=== PATIENT | male | born 1970 | race American Indian/Alaskan Native ===

== ENCOUNTER 2017-06-21 21:51 | Inpatient (IN) | payer SELFPAY ==
--- NOTE | 2017-06-21 22:26 | Emergency Department Report ---
ED Syncope HPI - General Chief Complaint: Syncope Stated Complaint: SYNCOPAL EPISODE Time Seen by Provider: 06/21/17 22:25 Source: patient, family, EMS (ems notes not available at time of chart dictation) Exam Limitations: other (patient is a poor historian) - History of Present Illness Initial Comments: this is a 47-year-old male. He is previously unknown to me. He does not have any medical conditions that he is aware of. He is accompanied by his . Patient's reports that the patient was playing cards with friends, had 3 beers, and then became unresponsive, foaming at the mouth, and lost consciousness. She states the patient hit his head, but is not certain. The patient was initially confused and does not recall the event. As per the , no fevers, chills, nausea, vomiting, lethargy, irritability. Since for the reports there is no leg pain or leg swelling, no recent trips greater than 4 hours. No recent hospital admissions. Patient was initially confused, and then became more awake and alert with her on in the course of his stay in the ER. He denied headache, neck pain, chest pain, abdominal pain and shortness of breath. He complains of feeling generally weak. No exacerbating or relieving factors. Timing/Prior Episodes: single episode today Precipitating Factors: Positive: unknown Context: sitting Loss of Consciousness: brief (seconds) Current Symptoms: back to normal - Related Data Allergies/Adverse Reactions: Allergies No Known Allergies Allergy (Unverified 06/21/17 22:25) Home Medications: Ambulatory Orders No Known Home Medications [No Reported Home Medications] 06/21/17 ED Review of Systems ROS: Stated complaint: SYNCOPAL EPISODE Other details as noted in HPI Constitutional: malaise, weakness Eyes: denies: vision change ENT: denies: epistaxis Respiratory: denies: cough Cardiovascular: syncope Gastrointestinal: denies: abdominal pain Genitourinary: denies: dysuria Musculoskeletal: denies: as per HPI Skin: denies: lesions Neurological: weakness, confusion ED Past Medical Hx - Medications Home Medications: Home Medications Medication Instructions Recorded Confirmed Last Taken Type No Known Home Medications [No 06/21/17 06/21/17 Unknown History Reported Home Medications] ED Physical Exam - General General appearance: alert, in no apparent distress - Head Head exam: Present: atraumatic, normocephalic - Eye Eye exam: Present: normal appearance, PERRL, EOMI. Absent: nystagmus - ENT ENT exam: Present: normal exam, normal orophraynx, mucous membranes moist, normal external ear exam - Neck Neck exam: Present: normal inspection, full ROM. Absent: tenderness, meningismus - Respiratory Respiratory exam: Present: normal lung sounds bilaterally. Absent: respiratory distress, wheezes, rales, rhonchi, stridor, chest wall tenderness - Cardiovascular Cardiovascular Exam: Present: regular rate, normal rhythm, normal heart sounds. Absent: bradycardia, tachycardia, irregular rhythm, systolic murmur, diastolic murmur, rubs, gallop - GI/Abdominal GI/Abdominal exam: Present: soft, normal bowel sounds. Absent: distended, tenderness, guarding, rebound, rigid, pulsatile mass - Rectal Rectal exam: Present: deferred - Extremities Exam Extremities exam: Present: normal inspection, full ROM, normal capillary refill. Absent: tenderness, pedal edema, joint swelling, calf tenderness - Back Exam Back exam: Present: normal inspection, full ROM. Absent: tenderness, CVA tenderness (R), CVA tenderness (L), muscle spasm, paraspinal tenderness, vertebral tenderness - Neurological Exam Neurological exam: Present: alert, oriented X3, other (Extraocular movements intact. Tongue midline. No facial droop. Facial sensation intact to light touch in the V1, V2, V3 distribution bilaterally. 5 and 5 strength in 4 extremities.. Sensation is intact to light touch in 4 extremities.). Absent: motor sensory deficit - Psychiatric Psychiatric exam: Present: normal affect, normal mood - Skin Skin exam: Present: warm, dry, intact, normal color. Absent: rash ED Course Vital Signs 06/21/17 06/21/17 22:28 23:27 Temperature 98.4 F Pulse Rate 80 Respiratory 20 Rate Blood Pressure 104/71 O2 Sat by Pulse 100 100 Oximetry - Reevaluation(s) Reevaluation #1: 06/21/17 23:37 Differential diagnosis: Seizure, syncope, acute coronary syndrome, structural cardiac disease, transient ischemic attack, arrhythmia, pulmonary embolus, alcohol intoxication Assessment and plan: 47-year-old male, who is currently alert and oriented 3, with a GCS of 15, and an NIH score of 0, with single episode of loss of consciousness, foaming at the mouth, without convulsive episodes. He is clinically sober at this time, there is no midline cervical spine pain or tenderness. No pulmonary embolus or DVT risk factors, low risk by well's criteria, perc negative. EKG is morphologically abnormal with a right bundle branch block morphology, high left ventricular voltage, nonspecific ST abnormality in the V2, V3 distribution. He is not having chest pain, there are no reciprocal changes, so it is not morphologically consistent with STEMI, however it is morphologically abnormal. Laboratory studies reviewed, they are unremarkable so far. X-ray of the chest is pending, noncontrast CT scan of the brain is pending, d-dimer is pending. Given syncope versus seizure, abnormal EKG morphology, plan is to admit the patient once initial data points have returned. Reevaluation #2: 06/22/17 01:[address] scan of the brain is negative. Patient resting comfortably. Repeat EKG morphologically unchanged, still remains abnormal. Urine toxicology screen is positive for cannabis and cocaine. She is clinically sober at this time. I highly suspect that the patient's events was secondary to illicit drug consumption. Nevertheless, given his reported history, an abnormal EKG without prior for comparison, I believe it is in the patient's best interests to be admitted for echocardiogram, possible ACS risk stratification/stress test. The case was presented to the Hospital physician, Dr. Delacruz, who accepts the patient to his service. Even that this is the reported history of patient's first event of convulsive activity, he is back to baseline, I do not believe antiepileptic drug therapies indicated at this time. ED Medical Decision Making - Lab Data Result diagrams: 06/21/17 22:41 06/21/17 22:41 Vital Signs 06/21/17 06/21/17 22:28 23:27 Temperature 98.4 F Pulse Rate 80 Respiratory 20 Rate Blood Pressure 104/71 O2 Sat by Pulse 100 100 Oximetry Labs 06/21/17 06/21/17 06/21/17 22:41 22:41 22:41 WBC 6.8 RBC 4.70 Hgb 14.4 Hct 43.7 MCV 93 MCH 31 MCHC 33 RDW 13.2 Plt Count 256 Lymph % (Auto) 32.1 [facility] % (Auto) 8.2 H Eos % (Auto) 4.2 Baso % (Auto) 0.5 Lymph # 2.2 [facility] # 0.6 Eos # 0.3 Baso # 0.0 Seg Neutrophils % 55.0 Seg Neutrophils # 3.7 PT 12.7 INR 0.91 Sodium 139 Potassium 3.4 L Chloride 99.6 Carbon Dioxide 20 L Anion Gap 23 BUN 12 Creatinine 0.8 Estimated GFR > 60 BUN/Creatinine Ratio 15.00 Glucose 72 L Calcium 8.6 Magnesium 1.90 Total Bilirubin 0.30 AST 16 ALT 11 Alkaline Phosphatase 78 Total Creatine Kinase 168 Troponin T < 0.010 Total Protein 6.5 Albumin 3.9 Albumin/Globulin Ratio 1.5 TSH Plasma/Serum Alcohol 06/21/17 06/21/17 22:41 22:47 WBC RBC Hgb Hct MCV MCH MCHC RDW Plt Count Lymph % (Auto) [facility] % (Auto) Eos % (Auto) Baso % (Auto) Lymph # [facility] # Eos # Baso # Seg Neutrophils % Seg Neutrophils # PT INR Sodium Potassium Chloride Carbon Dioxide Anion Gap BUN Creatinine Estimated GFR BUN/Creatinine Ratio Glucose Calcium Magnesium Total Bilirubin AST ALT Alkaline Phosphatase Total Creatine Kinase Troponin T Total Protein Albumin Albumin/Globulin Ratio TSH 1.030 Plasma/Serum Alcohol 0.03 - EKG Data -: EKG Interpreted by [place] EKG shows normal: sinus rhythm - EKG Data When compared to previous EKG there are: previous EKG unavailable 06/21/17 23:38 Normal sinus, 80 beats per minute, QTC 447 ms, high left ventricular voltage, right bundle branch block (incomplete), not morphologically consistent with STEMI, nonspecific ST elevations in the anteroseptal leads, abnormal EKG. 06/21/17 23:41 no episilon waves noted - Radiology Data Radiology results: report reviewed, image reviewed Critical care attestation.: If time is entered above; I have spent that time in minutes in the direct care of this critically ill patient, excluding procedure time. ED Disposition Clinical Impression: Abnormal EKG, Syncope Disposition: 09 OP ADMIT IP TO THIS HOSP Is pt being admited?: Yes Does the pt Need Aspirin: Yes Condition: Good Instructions: Syncope (ED) Referrals: PRIMARY CARE, [Primary Care Provider] - 3-5 Days
[2017-06-21 23:01] LABS: Basophils % (Auto) 0.5 % (0.0-1.8); Eosinophils % (Auto) 4.2 % (0.0-4.3); Hematocrit 43.7 % (35.5-45.6); Hemoglobin 14.4 gm/dl (11.8-15.2); Mean Corpuscular HGB Conc 33 % (32-34); Mean Corpuscular Hemoglobin 31 pg (28-32); Mean Corpuscular Volume 93 fl (84-94); Platelet Count 256 K/mm3 (140-440); Red Cell Distribution Width 13.2 % (13.2-15.2); White Blood Count 6.8 K/mm3 (4.5-11.0)
[2017-06-21 23:20] LABS: Alanine Aminotransferase 11 units/L (7-56); Albumin 3.9 g/dL (3.9-5); Albumin/Globulin Ratio 1.5 %; Alkaline Phosphatase 78 units/L (35-129); Anion Gap 23 mmol/L; Blood Urea Nitrogen 12 mg/dL (9-20); Calcium 8.6 mg/dL (8.4-10.2); Carbon Dioxide 20 mmol/L (22-30); Chloride 99.6 mmol/L (98-107); Creatine Kinase 168 units/L (55-170); Glucose 72 mg/dL (75-100); INR 0.91 (0.87-1.13); Potassium 3.4 mmol/L (3.6-5.0); Sodium 139 mmol/L (137-145); Total Protein 6.5 g/dL (6.3-8.2)
[2017-06-21] MEDS ORDERED: K-DUR PO ONE (23:35)
[2017-06-21 23:56] LABS: Urine Drugs of Abuse Note Disclamer
[2017-06-22 00:06] LABS: Bacteria,Urine 1+ /HPF (Negative); Bilirubin,Urine NEG (Negative); Blood,Urine NEG (Negative); Ketones,Urine TR mg/dL (Negative); Leukocyte Esterase,Urine NEG (Negative); Mucus,Urine FEW /HPF; Nitrite,Urine NEG (Negative); Protein,Urine <15 mg/dL mg/dL (Negative); Urobilinogen,Urine < 2.0 mg/dL (<2.0); WBC,Urine < 1.0 /HPF (0.0-6.0)
[2017-06-22] MEDS ORDERED: BABY ASPIRIN PO ONE (01:04)
--- NOTE | 2017-06-22 01:06 | Cat Scan Report ---
FINAL REPORT PROCEDURE: CT HEAD/BRAIN WO CON TECHNIQUE: Computerized tomography of the head was performed without contrast material. HISTORY: ETOH. Fall. DLP P 2 284.96 mGy-cm. COMPARISON: No prior studies are available for comparison. FINDINGS: Skull and scalp: Normal. Mild degenerative changes of the cervical spine on [employer] scout image. Paranasal sinuses: Small low-attenuation polypoid lesions in the maxillary sinuses. Air-fluid level in the right sphenoid sinus. Mild ethmoid, frontal, and left sphenoid sinusitis. Ventricles and subarachnoid spaces: Normal. Cerebrum: No evidence of hemorrhage, acute infarction or mass . Cerebellum and brainstem: No evidence of hemorrhage, acute infarction or mass. Vasculature: Normal. Comments: None. IMPRESSION: No CT evidence of acute intracranial pathology. Sinusitis. Findings slightly polypoid in the maxillary sinuses, consider small retention cysts or mild polyposis.
[2017-06-22] MEDS ORDERED: AMBIEN PO PRN (01:51)
[2017-06-22] MEDS ORDERED: MORPHINE IV PRN (01:51)
[2017-06-22] MEDS ORDERED: TYLENOL PO PRN (01:51)
[2017-06-22] MEDS ORDERED: ATIVAN IV PRN ×3 (01:51)
[2017-06-22] MEDS ORDERED: HALDOL IM PRN (01:51)
[2017-06-22] MEDS ORDERED: LIBRIUM PO PRN (01:51)
[2017-06-22] MEDS ORDERED: ZOFRAN IV PRN (01:51)
--- NOTE | 2017-06-22 01:57 | History and Physical Report ---
History of Present Illness Date of examination: 06/22/17 Chief complaint: Loss of consciousness History of present illness: Patient is a 47-year-old man with history of tobacco dependency, alcohol dependency, marijuana abuse and cocaine abuse who presents with transient loss of consciousness after drinking a beer and smoking marijuana while plan cards. Witness states he is on metformin at the moment with altered mental status and confusion after. Patient denies any prodromal symptoms prior to passing out. He denies chest pain, shortness of breath, fever chills severe headaches. Patient drinks 22 ounces beer a day. Last time he smoked cocaine was 3 days ago. Past medical history: As HPI, tobacco dependency, no chronic medical condition Past surgical history: Back surgery Social history: Tobacco dependency, alcohol daily use, illegal drug use Family history: Father-diabetes, hypertension ROS: Constitutional: no weight loss, no weight gain, no chills, no sweats, no fatigue , no weakness, no poor appetite Ears, nose, mouth and throat: no deferred, no ear pain, no decreased hearing, no sinus pressure, no bleeding gums, no dental pain, no mouth pain, no hoarseness, no sore throat, no swelling in mouth, no post-nasal drip, no headache, no vertigo, no pain front of neck, no neck lump Cardiovascular: chest pain, lightheadedness, decreased exercise tolerance, no orthopnea, no palpitations, no rapid/irregular heart beat, no edema, no syncope , no shortness of breath, no dyspnea on exertion, no paroxysmal nocturnal dyspnea, no claudication, no phlebitis, no high blood pressure, no leg edema Respiratory: no cough with sputum, no excessive sputum, no hemoptysis, no pleurisy, no pain, no pain on inspiration, no respiratory infections, no other Gastrointestinal: no nausea, no diarrhea, no constipation, no hematemesis, no hematochezia, no loss of appetite, no early satiety, no indigestion, no dyspepsia/bloating Genitourinary Male: no flank pain, no discharge, no urinary hesitancy, no nocturia Rectal: no incontinence, no bleeding, no itching, no discharge Musculoskeletal: no neck stiffness, no shooting arm pain, no arm numbness/ tingling, no shooting leg pain, no leg numbness/tingling, no atrophy, no limitation of motion, no fractures, no loss of height, no prior amputations, no arthritis Integumentary: no depigmentation, no dryness, no unusual bruising Neurological: no weakness, no tingling, no syncope, no vertigo, no migraines, no aphasia, no change in mentation, no changes in smell/taste, no balance difficulties, no double vision, no burning pain, no paralysis Psychiatric: hypersomnia, change in libido, irritability, no anxiety, no memory loss, no sleep disturbances, no change in appetite, no disorientation, no hallucinations, no paranoia, no hopelessness, no anxiety attacks, no confusion Endocrine: no cold intolerance, no polyphagia, no polydipsia, no polyuria, no nocturia, no proptosis, no palpatations, no high blood sugars, no low blood sugars, no fatigue Hematologic/Lymphatic: no easy bruising, no lymphedema Allergic/Immunologic: no urticaria, no allergic rhinitis, no anaphylaxis Medications and Allergies Allergies Allergy/AdvReac Type Severity Reaction Status Date / Time No Known Allergies Allergy Verified 06/22/17 01:52 Home Medications Medication Instructions Recorded Confirmed Last Taken Type No Known Home Medications [No 06/21/17 06/21/17 Unknown History Reported Home Medications] Active Meds: Active Medications Acetaminophen (Tylenol) 650 mg PO Q6H PRN PRN Reason: Non Cardiac Pain or Temp>100.5 Chlordiazepoxide HCl (Librium) 50 mg PO Q1H PRN PRN Reason: CIWA-Ar 8-15 Folic Acid (Folvite) 1 mg PO QDAY NAVIN Haloperidol Lactate (Haldol) 5 mg IM Q1H PRN PRN Reason: Unrespon. to mult. doses BZD's Heparin Sodium (Porcine) (Heparin) 5,000 unit SUB-Q Q12HR NAVIN Dextrose/Sodium Chloride (D5/0.45ns) 1,000 mls @ 100 mls/hr IV DIRECT NAVIN Lorazepam (Ativan) 2 mg IV Q1H PRN PRN Reason: CIWA-Ar 8-15 Lorazepam (Ativan) 4 mg IV Q1H PRN PRN Reason: CIWA-Ar 16-25 Lorazepam (Ativan) 4 mg IV Q15MIN PRN PRN Reason: CIWA-Ar >25 Stop: 06/27/17 01:52 Morphine Sulfate (Morphine) 2 mg IV Q4H PRN PRN Reason: Pain , Severe (7-10) Ondansetron HCl (Zofran) 4 mg IV Q4H PRN PRN Reason: Nausea And Vomiting Pantoprazole Sodium (Protonix) 40 mg PO QDAY NAVIN Thiamine HCl (Vitamin B-1) 100 mg PO QDAY NAVIN Zolpidem Tartrate (Ambien) 5 mg PO QHS PRN PRN Reason: Sleep Exam - Physical Exam Narrative exam: GEN: WDWN, diaphoretic NAD, AWAKE, ALERT, ORIENTATED x 3 HEENT: NCAT, PERRL, EOMI, OP CLEAR NECK: SUPPLE, NO THYROMEGALY, NO JVD, NO LAD CVS: Regular tachycardic, NORMAL S1S2 LUNGS/CHEST: CTA B, NORMAL CHEST EXPANSION B, GOOD AIR ENTRY B ABD: SOFT, NTND, GBS, NO REBOUND OR GUARDING EXT/SKIN: NO SIGNIFICANT EDEMA OR RASH MSK: FROM X 4 EXTREMITIES NEURO: CN 2-12 GROSSLY INTACT, NO FOCAL DEFICITS PSY: Anxious - Constitutional Vitals: Temp Pulse Resp BP Pulse Ox 98.4 F 80 20 104/71 100 06/21/17 22:28 06/21/17 22:28 06/21/17 23:27 06/21/17 22:28 06/21/17 23:27 Results - Labs CBC & Chem 7: 06/21/17 22:41 06/21/17 22:41 Labs: Abnormal lab results 06/21/17 06/21/17 Range/Units 22:41 22:41 [place] % (Auto) 8.2 H (0.0-7.3) % Potassium 3.4 L (3.6-5.0) mmol/L Carbon Dioxide 20 L (22-30) mmol/L Glucose 72 L (75-100) mg/dL Assessment and Plan Patient is a 47-year-old man with history of tobacco dependency, alcohol dependency, marijuana abuse and cocaine abuse who presents with transient loss of consciousness after drinking a beer and smoking marijuana while plan cards. Witness states he is on metformin at the moment with altered mental status and confusion after. Patient denies any prodromal symptoms prior to passing out. He denies chest pain, palpitations, shortness of breath, fever chills severe headaches. Patient drinks 22 ounces beer a day. Last time he smoked cocaine was 3 days ago. -Syncopal episode, most likely vasovagal versus syncopal seizure: Admitted to the hospital -Altered mental status with acute toxic metabolic encephalopathy due to drug use versus syncopal seizure from alcohol withdrawal: Monitor telemetry for arrhythmia -Abnormal EKG most likely related to cocaine/etoh use: Counseling done, Get echocardiogram, serial cardiac enzymes -Tobacco dependency: Counseling stopping -Alcohol dependency: Ordered thiamine, folate and Ciwa protocol -HypoKalemia: replace and monitor -cocaine abuse: Counseling stopping -DVT prophylaxis: Subcutaneous heparin full code Disposition: inpatient care
[2017-06-22] MEDS ORDERED: D5/0.45NS 1,000 ML IV SCH (02:00)
[2017-06-22 07:05] LABS: Creatine Kinase MB 2.3 ng/mL (0.0-4.0)
[2017-06-22 07:08] LABS: Creatine Kinase 141 units/L (55-170)
[2017-06-22] MEDS: VITAMIN B-1 PO SCH (09:22)
[2017-06-22] MEDS: FOLVITE PO SCH (09:22)
[2017-06-22] MEDS: PROTONIX PO SCH (09:22)
--- NOTE | 2017-06-22 10:44 | Event Note ---
Date: 06/22/17 Patient was seen and evaluated this morning. Chart reviewed, labs reviewed. Patient didn't have any syncope overnight. No chest pain or other symptoms. We going to do echo.
[2017-06-23] MEDS: HEPARIN SUB-Q SCH ×2 (02:04→09:31)
--- NOTE | 2017-06-23 06:08 | Admit Criteria Form ---
Admission Criteria Documentation: SYNCOPE Clinical Indications for Admission to Inpatient Care ( Place 'X' for any and all applicable criteria): Admission is indicated for syncope and 1 or more of the following(1)(2)(3)(4)(5) (6)(7): [ ]I. Hemodynamic instability [ ]II. Suspicion of imminently dangerous cause (eg, subarachnoid hemorrhage, pulmonary embolism) [ ]III. Syncope causing injury requiring hospitalization [ ]IV. Respiratory distress [ ]V. Acute coronary syndrome identified. See Myocardial Infarction or Angina guideline [X ]V. Inpatient admission required rather than observation care (Also use Syncope: Observation Care Criteria as appropriate) because of 1 or more of the following: [ ]1) Cardiac arrhythmias of immediate concern identified or strongly suspected (eg, needs electrophysiologic study) [ ]2) Structural cardiac disorder (eg, aortic stenosis) suspected as cause that requires immediate treatment [ ]3) Neurologic signs or symptoms that are severe or persistent (eg, stroke, seizures, altered mental status) [ ]4) Severe electrolyte abnormalities requiring inpatient care [ ]5) Respiratory symptoms (eg, dyspnea, tachypnea) that are severe or persistent [ ]6) Dehydration that is severe or persistent [ ]7) Continuous intravenous infusion of anticoagulation, platelet inhibitor, vasoactive, or antiarrhythmic medication(15)(16 [ ]8) Pulmonary artery catheter monitoring [ ]9) Temporary pacemaker placement [ ]10) Emergent cardioversion [X ]11) Other condition,treatment,or monitoring requiring inpatient admission Extended stay beyond goal length of stay may be needed for(28) [ ]a) Dangerous arrhythmia(15)(23)(27)(29) [ ]b) Myocardial ischemia [ ]c) Seizure disorder [ ]d) Syncope-related injuries The original [employer] content created by [employer] has been revised. The portions of the content which have been revised are identified through the use of italic text or in bold, and [employer] has neither reviewed nor approved the modified material. All other unmodified content is copyright [employer]. Please see references footnoted in the original [employer] edition 2017 Admission Criteria Met: Yes
[2017-06-23 06:16] LABS: Hematocrit 44.8 % (35.5-45.6); Hemoglobin 15.3 gm/dl (11.8-15.2); Mean Corpuscular HGB Conc 34 % (32-34); Mean Corpuscular Hemoglobin 31 pg (28-32); Mean Corpuscular Volume 92 fl (84-94); Platelet Count 261 K/mm3 (140-440); Red Blood Count 4.88 M/mm3 (3.65-5.03); Red Cell Distribution Width 13.3 % (13.2-15.2)
[2017-06-23 06:33] LABS: Anion Gap 16 mmol/L; BUN/Creatinine Ratio 7.77; Blood Urea Nitrogen 7 mg/dL (9-20); Calcium 8.6 mg/dL (8.4-10.2); Carbon Dioxide 26 mmol/L (22-30); Chloride 101.3 mmol/L (98-107); Glucose 106 mg/dL (75-100); Potassium 4.3 mmol/L (3.6-5.0); Sodium 139 mmol/L (137-145)
--- NOTE | 2017-06-23 08:15 | Discharge Summary ---
Providers - Providers Date of Admission: 06/22/17 01:02 Date of discharge: 06/23/17 Attending physician: INGA MCCOY MD Primary care physician: [employer] Hospitalization Reason for admission: Syncope Condition: Good Pertinent studies: CT head normal, Echocardiogram concentric LV hypertrophy Hospital course: History of present illness: Patient is a 47-year-old man with history of tobacco dependency, alcohol dependency, marijuana abuse and cocaine abuse who presents with transient loss of consciousness after drinking a beer and smoking marijuana while plan cards. Witness states he is on metformin at the moment with altered mental status and confusion after. Patient denies any prodromal symptoms prior to passing out. He denies chest pain, shortness of breath, fever chills severe headaches. Patient drinks 22 ounces beer a day. Last time he smoked cocaine was 3 days ago. Patient was hemodynamically stable, no syncope after admission. Patient CT is negative and Echo normal. Patient was counselled to stop smoking marijuana and using cocaine. Patient left AMA while he was waiting for ECHO to be read. Disposition: [id number]-07 LEFT AGAINST MED ADVICE Time spent for discharge: 31 minutes - Discharge Diagnoses (1) Abnormal EKG Status: Acute (2) Syncope Status: Acute Qualifiers: Syncope type: S Encounter type: E (3) Cocaine abuse Status: Acute (4) Marijuana abuse Status: Acute Core Measure Documentation - Palliative Care Palliative Care/ Comfort Measures: Not Applicable - Core Measures Any of the following diagnoses?: none Exam - Constitutional Vitals: Temp Pulse Resp BP Pulse Ox 98 F 58 L 18 117/77 97 06/23/17 06:44 06/23/17 06:44 06/23/17 06:44 06/23/17 06:44 06/23/17 06:44 General appearance: Present: no acute distress - EENT Eyes: Present: PERRL, EOM intact ENT: hearing intact, clear oral mucosa - Neck Neck: Present: supple, normal ROM - Respiratory Respiratory effort: normal Respiratory: bilateral: CTA - Cardiovascular Rhythm: regular Heart Sounds: Present: S1 & S2 - Extremities Extremities: no ischemia, No edema, Full ROM Peripheral Pulses: within normal limits - Abdominal General gastrointestinal: Present: soft, non-distended, normal bowel sounds - Integumentary Integumentary: Present: clear, warm - Musculoskeletal Musculoskeletal: strength equal bilaterally - Psychiatric Psychiatric: appropriate mood/affect - Neurologic Neurologic: CNII-XII intact - Allied Health Allied health notes reviewed: nursing Plan Activity: no restrictions Weight Bearing Status: Full Weight Bearing Diet: low cholesterol Follow up with: PRIMARY CARE, [Primary Care Provider] - 3-5 Days Forms: AMA Form
[2017-06-23 09:13] VITALS: BP 142/97
[2017-06-23] MEDS: FOLVITE PO SCH (09:30)
[2017-06-23] MEDS: VITAMIN B-1 PO SCH (09:30)
[2017-06-23] MEDS: PROTONIX PO SCH (09:31)
== END 2017-06-23 12:50 | disposition left against medical advice (07) | DRG 312 ==
LOC: ED 21:51 → 4A 06-22 01:02
PROVIDERS: ADMIT Internal Medicine; ATTEND Internal Medicine
DX: R55 Syncope and collapse (principal); G92 Toxic encephalopathy; R94.31 Abnormal electrocardiogram [ECG] [EKG]; F17.200 Nicotine dependence, unspecified, uncomplicated; F12.10 Cannabis abuse, uncomplicated; F14.10 Cocaine abuse, uncomplicated; E87.6 Hypokalemia; F10.20 Alcohol dependence, uncomplicated; Z53.21 Procedure and treatment not carried out due to patient leaving prior to being seen by health care provider; Z83.3 Family history of diabetes mellitus; Z82.49 Family history of ischemic heart disease and other diseases of the circulatory system; Z71.6 Tobacco abuse counseling
CPT/HCPCS: 36415; 70450; 80048; 80053; 80307; 80320; 81001; 82550; 82553; 83735; 84443; 84484; 85025; 85027; 85379; 85610; 93005; 93010; 93306; 99406; G0480; J1644